=== PATIENT | male | born 1950 | race Caucasian/White ===

== ENCOUNTER → 2020-06-02 | Outpatient (CLI) | payer OTHER ==
[~2020-06-02] MED LIST: CHOL500050 PO; MULT-245 PO
== END ==
LOC: LAB 13:43
PROVIDERS: ATTEND Specialist
DX: Z01.812 Encounter for preprocedural laboratory examination (principal); R22.1 Localized swelling, mass and lump, neck; Z20.822 Contact with and (suspected) exposure to COVID-19
CPT/HCPCS: U0003

== ENCOUNTER → 2020-06-06 | Day surgery (SDC) | payer MEDICARE, OTHER ==
[~2020-06-06] MED LIST changes: +LIDOCAINE 2%/EPI 1:100,000 20 ML VIAL. INJ ONE
[2020-06-06 10:36] VITALS: BP 125/75
--- NOTE | 2020-06-06 11:08 | PREOP HP ---
DATE OF SERVICE: 06/06/2020 HISTORY OF PRESENT ILLNESS: The patient is referred to me by ____, the wood room hand because of a lesion of the left neck. Apparently, it has been there for about 3 years, enlarging and he thought it should be removed widely. PAST MEDICAL HISTORY: Shows normal childhood diseases. No high blood pressure, cancer, TB, asthma or diabetes. MEDICATIONS: He takes no medication. He does not take anticoagulants. SOCIAL HISTORY: Drinks only socially and does not use illicit drugs and does not smoke. He stopped smoking cigarettes about 30 years ago. ALLERGIES: He has no allergies. REVIEW OF SYSTEMS: Negative except for the lesion at the neck, which is not painful, but it is just not going away and crust over it at. PHYSICAL EXAMINATION: GENERAL: Shows an alert male, in no acute distress. HEAD, EYES, NOSE AND THROAT: Grossly normal. CHEST: Clear bilaterally to auscultation. HEART: Had no murmurs, heaves, friction rubs or thrills at a rate of 70 beats per minute and it was regular. ABDOMEN: Soft, no organomegaly, no masses. NECK: Examination of the neck; however, on the skin at the posterolateral portion of the neck, there is a lesion which is more transverse in nature and it is about 3-4 cm in length. It appears to be crusting over and the wood room hand thought it may well be malignant, it has not been biopsied recently, the wood room hand it should be widely excised. IMPRESSION AND PLAN: Tumor, left neck. Plan is to remove this widely under local anesthesia as an outpatient. PAULETTE FARMER MD DR: GISELLA/nts JOB#: [id number] / [id number] ELINA
[2020-06-06] MEDS: LIDOCAINE 2%/EPI 1:100,000 20 ML VIAL. IJ ONE (11:27)
--- NOTE | 2020-06-06 12:15 | PDOC ---
SURGICAL PROGRESS NOTE DATE: 06/06/20 TIME: 12:14 No change in dictated H&P Vital Signs Vital Signs Date Time Temp Pulse Resp B/P (MAP) Pulse Ox O2 Delivery O2 Flow Rate FiO2 06/06/20 10:36 67 20 99 Justicifation of Admission Dx: Justifications for Admission: Justification of Admission Dx: Yes PAULETTE FARMER MD Jun 06, 2020 12:15
--- NOTE | 2020-06-06 12:18 | PDOC ---
SURGICAL PROGRESS NOTE DATE: 06/06/20 TIME: 12:15 Op Note: Surgeon............................................Mark Pre op diag........................................tumor left neck post op diag......................................Tumor left neck Anesthesia.......................................1% lidocaine with epi Procedure..........................................wide excision mass left neck Blood loss..........................................5cc Fluids................................................none Drains...............................................none condition...........................................satisfactory Vital Signs Vital Signs Date Time Temp Pulse Resp B/P (MAP) Pulse Ox O2 Delivery O2 Flow Rate FiO2 06/06/20 10:36 67 20 99 Justicifation of Admission Dx: Justifications for Admission: Justification of Admission Dx: Yes PAULETTE FARMER MD Jun 06, 2020 12:18
--- NOTE | 2020-06-06 12:26 | DISCH ---
DISCHARGE INSTRUCTIONS Condition on Discharge Condition on Discharge: Stable Activity After Discharge Activity Instructions for Disc: Avoid exertion Diet after Discharge Additional Diet Restrictions: diet as desired Wound Incision Care Other wound/incision instructi: keep wound dry and clean Follow-Up Follow up with: call and make appt to see me in 7 days. PAULETTE FARMER MD Jun 06, 2020 12:26
--- NOTE | 2020-06-06 21:53 | OP ---
DATE OF SURGERY: 06/06/2020 SURGEON: Brandan Farmer MD PREOPERATIVE DIAGNOSIS: Mass of the left neck. POSTOPERATIVE DIAGNOSIS: Mass of the left neck with skin lesion. ANESTHESIA: 1% lidocaine with epinephrine. PROCEDURE: Excision of mass, left neck. TECHNIQUE: Under local anesthesia, the area had been properly prepped and draped in a routine fashion with Betadine solution. We had injected after that was draped and prepped with 1% lidocaine with epinephrine around the area. The lesion in question was probably about 2 cm in size and as such we made a wide incision in a transverse fashion following the skin lines, this was at the lateral portion of the neck, right in the middle of the neck. We made this in a fusiform fashion encompassing this area. We went well around the mass being a centimeter or more pass all edges. The incision totally was about 3 inches in length. The #15 blade was used to incise the skin in a fusiform fashion transversely following the skin lines of the neck. We did this as stated before going widely around the mass. We then carried this down through the skin and using Metzenbaum scissors slowly took some of the subcutaneous along with the skin off. We put a stitch at the posterior aspect of this and sent this to pathology. The resultant defect was inspected. There was surprisingly little bleeding. One small suture of 4-0 Vicryl was used to approximate and close one bleeder on the cephalad portion of the mid portion of the wound. This was in the subcutaneous. We inspected the area. There were no further bleeding. We did undermine the subcutaneous just a little bit cephalad and caudad so that we could close this without too much tension and using interrupted 4-0 Vicryl to take deep the subcutaneous and deep dermis to approximate the areas. We then closed the wound with interrupted 5-0 nylon. Sterile dressing was applied and the procedure was terminated as a specimen had been sent to pathology. No drains were used. The blood loss was probably 2-3 mL. FLUIDS GIVEN: None. Condition of the patient was satisfactory as he has returned to the holding area. BRANDAN FARMER MD DR: GISELLA/omaira JOB#: [id number] / [id number] MTDD
--- NOTE | 2020-06-12 13:12 | PATHOLOGY ---
[facility] Accession Number: [id number] . 01 Material submitted: . neck - MASS LEFT NECK. Modifiers: left . 01 Clinical history: . EXC MASS NECK SUTURE AT POSTERIOR EDGE . 02 Diagnosis: Skin "mass left neck", excisional biopsy: - INVASIVE SQUAMOUS CELL CARCINOMA, WELL-DIFFERENTIATED; COMPLETELY EXCISED. (NICOLEK:christopher; 06/09/2020) MBR 06/12/2020 1213 Local . 02 Electronically signed: . Nikole Hagan MD, Pathologist NPI- [id number] . 01 Gross description: . The specimen is received in formalin, labeled "Jose Sanchez, mass left neck". Received is an oriented ellipse of skin measuring 4.5 x 1.6 x 0.4 cm in greatest dimensions with a suture placed at one tip designating this as the posterior edge, which will further be designated as the 3:00 margin. The surgical margins are inked as follows: 12 to 3:00-yellow, 3 to 9:00-black, and 9 to 12:00-blue. The epidermal surface displays a well-circumscribed, flat and white-sharma lesion measuring 1.0 x 0.6 cm. The specimen is sectioned into 14 pieces and entirely submitted in cassettes A1 through A4, with the 3:00 and 9:00 aspects placed in cassette A4. (CAA; 06/06/2020) QAC/QAC 06/06/2020 1737 Local . 02 Pathologist provided ICD-10: C44.42 . 02 CPT . 209395 Specimen Comment: A courtesy copy of this report has been sent to [phone], [phone] Specimen Comment: [id number] Specimen Comment: Report sent to / DR BEAVER Performed at: 01 [facility] [address] [id number] MD Wallace Palm MD Phone: [phone] Performed at: 02 [facility] [address] [id number] MD Richard Everett MD Phone: [phone]
== END | disposition home or self-care (01) ==
LOC: SURG 10:28 → EDUNIT# 10:30
PROVIDERS: ATTEND Specialist
DX: R22.1 Localized swelling, mass and lump, neck (principal); C44.42 Squamous cell carcinoma of skin of scalp and neck; Z87.891 Personal history of nicotine dependence; Z79.899 Other long term (current) drug therapy; Z98.890 Other specified postprocedural states
CPT/HCPCS: 11621; 88305; J3490